=== PATIENT | female | born 1990 | race Caucasian/White ===

== ENCOUNTER 2019-03-15 14:23 | Emergency (ER) | payer OTHER ==
[~2019-03-15] VITALS: Ht 160 cm; Wt 64.4 kg
[2019-03-15 14:33] VITALS: BP 171/99
[2019-03-15] MEDS ORDERED: ACETAMINOPHEN EXTRA STRENGTH 500 MG TAB PO ONE ×2 (14:40→14:45)
--- NOTE | 2019-03-15 14:49 | NUR ---
29/F BIB FAMILY C/O FEVER,COUGH, SORE THROAT, BODY ACHE X 4 DAYS. TEMP 102.1 AT THIS TIME. MED HX: GALL BLADDER REMOVAL, APPENDECTOMY, HYPERTHYROID.PATIENT STATES PAIN OF 10/10 AT THIS TIME. PATIENT POSITIONED FOR COMFORT; HOB ELEVATED; BEDRAILS UP X1; BED DOWN. ER MD MADE AWARE OF PT STATUS.
[2019-03-15] MEDS ORDERED: ALBUTEROL SULFATE/IPRATROPIU 3 ML SOL IH ONE (14:55)
--- NOTE | 2019-03-15 15:01 | NUR ---
FLU SWAB SENT TO LAB
--- NOTE | 2019-03-15 15:03 | NUR ---
PT TAKEN TO X RAY.
--- NOTE | 2019-03-15 15:04 | NUR ---
RT AT BEDSIDE FOR BREATHING TREATMENT.
--- NOTE | 2019-03-15 15:18 | NUR ---
PT RECEIVED ON RA SATURATION 100 PERCENT. TX GIVEN. B/S WERE CLEAR THROUGHOUT. PT APPEARS IN PAIN. PT TOLERATED TX WELL. NO ADVERSE REACTION TO TX
[2019-03-15] MEDS ORDERED: LEVOFLOXACIN 750 MG TAB PO ONE (16:00)
[2019-03-15] MEDS ORDERED: KETOROLAC 30 MG/ML VIAL IM ONE (16:00)
[2019-03-15 16:30] VITALS: BP 140/96
--- NOTE | 2019-03-15 16:30 | NUR ---
Patient discharged with v/s stable. Written and verbal after care instructions given and explained. Patient alert, oriented and verbalized understanding of instructions. Ambulatory with steady gait. All questions addressed prior to discharge. ID band removed. Patient advised to follow up with PMD. Rx of LEVAQUIN, ALBUTEROL given. Patient educated on indication of medication including possible reaction and side effects. Opportunity to ask questions provided and answered.
== END 2019-03-15 16:29 | disposition home or self-care (01) ==
LOC: MED 14:23
DX: J18.9 Pneumonia, unspecified organism (principal); F17.210 Nicotine dependence, cigarettes, uncomplicated; E05.90 Thyrotoxicosis, unspecified without thyrotoxic crisis or storm; Z90.49 Acquired absence of other specified parts of digestive tract; Z71.6 Tobacco abuse counseling
CPT/HCPCS: 71046; 87804; 94640; 96372; 99284; J1885; J7620

== ENCOUNTER 2020-01-01 14:10 | Emergency (ER) | payer OTHER ==
[~2020-01-01] VITALS: Ht 160 cm; Wt 63.5 kg
[2020-01-01 14:15] VITALS: BP 152/104
--- NOTE | 2020-01-01 14:26 | NUR ---
29 yo female c/o burning stabbing pain to epigastric region x >1 wk---seen [facility] given zofran and pain med----ran out yesterday ---sudden onset today without having to eat----no appetite +nausea hx--denies rx---none
[2020-01-01] MEDS ORDERED: ALUMINUM HYD/MAG/SIMETHICONE 30 ML UDC PO ONE (14:35)
[2020-01-01] MEDS ORDERED: LIDOCAINE VISCOUS 2% 20 ML UDC PO ONE (14:35)
[2020-01-01] MEDS ORDERED: METOCLOPRAMIDE 10 MG TAB PO ONE (14:35)
[2020-01-01] MEDS ORDERED: DICYCLOMINE HCL LIQUID 10 MG/5 ML UDC PO ONE (14:50)
[2020-01-01] MEDS: SUCRALFATE 1 GM TAB PO SCH ×2 (14:51→16:07)
[2020-01-01] MEDS ORDERED: NACL 0.9% 1,000 ML IV ONE (14:55)
[2020-01-01] MEDS ORDERED: fentaNYL citrate 0.05 MG/ML VIAL IVP ONE (16:00)
[2020-01-01 16:38] LABS: ALBUMIN 4.6 g/dL (3.4-5.0); ANION GAP 16.6 (8-16); CARBON DIOXIDE 24.9 mmol/L (21-32); CREATININE 0.6 mg/dL (0.6-1.3); POTASSIUM 3.5 mmol/L (3.5-5.1); TOTAL BILIRUBIN 0.3 mg/dL (0.0-1.0)
[2020-01-01 17:04] VITALS: BP 147/78
--- NOTE | 2020-01-01 17:04 | NUR ---
Patient discharged with v/s stable. Written and verbal after care instructions given and explained. Patient alert, oriented and verbalized understanding of instructions. Ambulatory with steady gait. All questions addressed prior to discharge. ID band removed. Patient advised to follow up with PMD. Rx of CARAFATE, ZOFRAN, NORCO given. Patient educated on indication of medication including possible reaction and side effects. Opportunity to ask questions provided and answered.
== END 2020-01-01 17:04 | disposition home or self-care (01) ==
LOC: MED 14:10
DX: R10.13 Epigastric pain (principal); R11.10 Vomiting, unspecified; K21.9 Gastro-esophageal reflux disease without esophagitis; E07.9 Disorder of thyroid, unspecified
CPT/HCPCS: 36415; 80053; 81002; 81025; 83690; 96361; 96374; 99284; J3010; J7030; J8597

== ENCOUNTER 2020-02-11 20:44 | Emergency (ER) | payer OTHER ==
[~2020-02-11] VITALS: Ht 165.1 cm; Wt 71.2 kg
[2020-02-11 20:55] VITALS: BP 128/81
--- NOTE | 2020-02-11 20:59 | NUR ---
PT TAKEN TO BED 7
--- NOTE | 2020-02-11 21:03 | NUR ---
PT UP AND AMBULATED WITH HER DAUGHTER TO THE RESTROOM.
--- NOTE | 2020-02-11 21:17 | NUR ---
PT C/O OF CHEST PAIN TO MEDISTERNAL AREA, SHARP PAIN 9/10, ALSO HAVING SOB, THIS HAS BEEN GOING ON X 2 DAYS, SHE'S NOT SURE IF IT COULD BE ANXIETY. ALSO C/O R KNEE PAIN, STATES SHE HAS TORN LIGAMENTS IN HER KNEE, HAS BEEN HAVING 8/10 THROBBING PAIN X 1 WEEK UNABLE TO PUT PRESSURE ON KNEE, WAS SEEN AT URGENT CARE AND GIVEN NSAIDS, UNABLE TO TAKE THEM DUE TO BLEEDING STOMACH ULCERS. PT NOT SURE HOW SHE INJURED HER KNEE BELIEVES SHE STEPPED WRONG AND TWISTED HER KNEE. BED IN LOWEST POSITION AND SIDERAIL UP X 1. ALLERGIES - NSAIDS HX - BLEEDING ULCER (STOMACH)
--- NOTE | 2020-02-11 21:37 | NUR ---
X-Ray at bedside.
--- NOTE | 2020-02-11 21:55 | NUR ---
Dr. Inman examining patient.
[2020-02-11 22:18] VITALS: BP 127/86
--- NOTE | 2020-02-11 22:22 | NUR ---
PT PLACED IN RIGHT ORTHO KNEE IMOBILIZOR
== END 2020-02-11 22:27 | disposition home or self-care (01) ==
LOC: MED 20:44
DX: S83.8X1A Sprain of other specified parts of right knee, initial encounter (principal); F17.210 Nicotine dependence, cigarettes, uncomplicated; F41.9 Anxiety disorder, unspecified; R03.0 Elevated blood-pressure reading, without diagnosis of hypertension; E07.9 Disorder of thyroid, unspecified; Z88.6 Allergy status to analgesic agent; Z71.6 Tobacco abuse counseling; X58.XXXA Exposure to other specified factors, initial encounter; Y93.9 Activity, unspecified; Y92.89 Other specified places as the place of occurrence of the external cause; Y99.8 Other external cause status
CPT/HCPCS: 29505; 73562; 73630; 99284; Q0092

== ENCOUNTER 2020-05-04 19:34 | Emergency (ER) | payer OTHER ==
[~2020-05-04] VITALS: Ht 160 cm; Wt 72.6 kg
[2020-05-04 19:50] VITALS: BP 152/100
--- NOTE | 2020-05-04 19:53 | NUR ---
TO LOBBY A/W BED AMBULATORY
--- NOTE | 2020-05-04 19:55 | NUR ---
SEEN AND EXAMINED BY PA WITH ORDERS AND CARRIED OUT
[2020-05-04 20:36] LABS: BASOPHILS % (AUTO) 0.4 % (0.0-2.0); EOSINOPHILS # (AUTO) 0.1 K/uL (0-0.4); EOSINOPHILS % (AUTO) 0.6 % (0.0-4.0); HEMATOCRIT 40.2 % (36-48); HEMOGLOBIN 13.1 g/dL (12.0-16.0); LYMPHOCYTES # (AUTO) 3.4 K/uL (2.5-16.5); LYMPHOCYTES % (AUTO) 34.2 % (20.5-51.1); MEAN CORPUSCULAR HEMOGLOBIN 29 pg (27-31); MEAN CORPUSCULAR HGB CONC 33 g/dL (33-37); MEAN CORPUSCULAR VOLUME 87.9 fL (80-94); MONOCYTES # (AUTO) 0.6 K/uL (0.8-1.0); MONOCYTES % (AUTO) 6.4 % (1.7-9.3); NEUTROPHILS # (AUTO) 5.8 K/uL (1.8-7.7); NEUTROPHILS % (AUTO) 58.4 % (42.2-75.2); PLATELET COUNT (AUTO) 334 K/uL (140-450); RED BLOOD CELL COUNT(AUTO) 4.58 MIL/uL (4.20-5.40); RED CELL DISTRIBUTION WIDTH 17.4 % (11.6-13.7); WHITE BLOOD COUNT (AUTO) 9.9 K/uL (4.8-10.8)
[2020-05-04 21:02] LABS: ALBUMIN 4.5 g/dL (3.4-5.0); ANION GAP 16.2 (8-16); CARBON DIOXIDE 24.3 mmol/L (21-32); CREATININE 0.7 mg/dL (0.6-1.3); POTASSIUM 3.5 mmol/L (3.5-5.1); TOTAL BILIRUBIN 0.5 mg/dL (0.0-1.0)
[2020-05-04 22:13] LABS: APPEARANCE,URINE CLEAR (CLEAR); BILIRUBIN,URINE NEGATIVE (NEGATIVE); BLOOD, URINE NEGATIVE (NEGATIVE); COLOR,URINE YELLOW (YELLOW); LEUKOCYTE ESTERASE ,URINE NEGATIVE (NEGATIVE); NITRITE, URINE POSITIVE (NEGATIVE); UGLUCOSE NEGATIVE (NEGATIVE)
[2020-05-04 22:51] LABS: RBC,URINE 0-5 /HPF (0-5); WBC,URINE 0-5 /HPF (0-5)
--- NOTE | 2020-05-04 23:30 | NUR ---
SEE COMPLETE ASSESSMENT
[2020-05-04] MEDS ORDERED: KETOROLAC 30 MG/ML VIAL IM ONE (23:35)
[2020-05-04] MEDS ORDERED: HYDROcodone/APAP 5/325 MG 1 TAB TAB PO ONE (23:35)
--- NOTE | 2020-05-05 00:10 | NUR ---
Patient discharged with v/s stable. Written and verbal after care instructions given and explained. Patient alert, oriented and verbalized understanding of instructions. Ambulatory with steady gait. All questions addressed prior to discharge. ID band removed. Patient advised to follow up with PMD. Rx of NAPROSYN, NORCO, KELFEX given. Patient educated on indication of medication including possible reaction and side effects. Opportunity to ask questions provided and answered.
== END 2020-05-05 00:10 | disposition home or self-care (01) ==
LOC: MED 19:34
DX: N39.0 Urinary tract infection, site not specified (principal); N83.201 Unspecified ovarian cyst, right side; N83.202 Unspecified ovarian cyst, left side; E05.90 Thyrotoxicosis, unspecified without thyrotoxic crisis or storm
CPT/HCPCS: 36415; 76856; 80053; 81001; 81025; 83690; 85025; 93976; 96372; 99284; J1885

== ENCOUNTER 2020-05-21 09:39 | Emergency (ER) | payer OTHER ==
[~2020-05-21] VITALS: Ht 160 cm; Wt 68.5 kg
[2020-05-21 09:44] VITALS: BP 155/109
[2020-05-21] MEDS ORDERED: HYDROcodone/APAP 5/325 MG 1 TAB TAB PO ONE (10:10)
[2020-05-21 10:34] VITALS: BP 149/92
--- NOTE | 2020-05-21 10:35 | NUR ---
cleared for d/c by DR KING; d/c with prescription & instructions on Ovarian Cyst; pt fully understands all materials given re c/c; has no further questions; aox4; VSS; ambulatorywith steady gait; no signs of acute distress
== END 2020-05-21 10:35 | disposition home or self-care (01) ==
LOC: MED 09:39
DX: N83.202 Unspecified ovarian cyst, left side (principal); N83.201 Unspecified ovarian cyst, right side; I10 Essential (primary) hypertension; F17.200 Nicotine dependence, unspecified, uncomplicated; E05.90 Thyrotoxicosis, unspecified without thyrotoxic crisis or storm; Z90.49 Acquired absence of other specified parts of digestive tract; Z98.890 Other specified postprocedural states
CPT/HCPCS: 99283

== ENCOUNTER 2020-06-24 20:27 | Emergency (ER) | payer OTHER ==
[~2020-06-24] VITALS: Ht 160 cm; Wt 74.4 kg
[2020-06-24 21:17] VITALS: BP 171/110
--- NOTE | 2020-06-24 21:27 | NUR ---
Pt ambulated to ER bed 6 w/ steady gait.
--- NOTE | 2020-06-24 21:28 | NUR ---
PT CONNECTED TO THE DATA CONSULTANT
--- NOTE | 2020-06-24 21:50 | NUR ---
30 YR OLD FEMALE PRESENTED TO THE ER WITH CC OF LEFT KNEE PAIN. PT IS AOX4. PT STATES 8 NON-RADIATING DULL/PRESSURE LIKE PAIN THAT STARTED LAST TUE. PT STATES LAST FRI, LEFT KNEE FELT LIKE IT "POPPED OUT AND BACK IN". PT LEFT KNEE HAS SLIGHT SWELLING. PT DENIES OTHER MEDICAL COMPLAINTS. BED LOCKED IN LOWEST POSITION. HISTORY- GALLBLADDER AND APPENDIX REMOVED, 2 , BLOOD TRANSFUSION ALLERGIES- NONE BUT STATES CANT TAKE IBUPROFEN DUE TO BLEEDING ULCERS
[2020-06-24 23:20] VITALS: BP 171/111
--- NOTE | 2020-06-24 23:20 | NUR ---
Patient discharged with v/s stable. Written and verbal after care instructions given and explained. Patient alert, oriented and verbalized understanding of instructions. Ambulatory with steady gait. All questions addressed prior to discharge. ID band removed. Patient advised to follow up with PMD. Rx of TRAMADOL HYDROCHLORIDE given. Patient educated on indication of medication including possible reaction and side effects. Opportunity to ask questions provided and answered.
--- NOTE | 2020-06-24 23:24 | NUR ---
KNEE IMMOBILIZER PLACED ON PT L KNEE, SECURED TO LEG. +CSM
--- NOTE | 2020-06-24 23:25 | NUR ---
PT GIVEN INSTRUCTION ON PROPER USE OF CRUTCHES. CRUTCHES FITTED TO PT HEIGHT AND ARM LENGTH. PT DEMONSTRATED SAFE USE FOR APPROXIMATELY 20 FEET, PT STATED SHE FELT COMFORTABLE WITH USE.
== END 2020-06-24 23:20 | disposition home or self-care (01) ==
LOC: MED 20:27
DX: M25.562 Pain in left knee (principal); I10 Essential (primary) hypertension; F17.210 Nicotine dependence, cigarettes, uncomplicated; Z85.9 Personal history of malignant neoplasm, unspecified
CPT/HCPCS: 29505; 73562; 99283

== ENCOUNTER 2020-08-04 11:40 | Emergency (ER) | payer OTHER ==
[~2020-08-04] VITALS: Ht 160 cm; Wt 68.0 kg
[2020-08-04 11:45] VITALS: BP 147/103
--- NOTE | 2020-08-04 11:52 | NUR ---
Patient ambulated to bed 6. RN evaluating the patient at bedside.
--- NOTE | 2020-08-04 11:54 | NUR ---
Dr. Nuñez is evaluating the patient at bedside.
--- NOTE | 2020-08-04 12:03 | NUR ---
30 y/o F coming in from home c/o wound incision pain. Patient states she had surgery to remove her right ovary and right fallopian tube completed at [facility] on 07/16/20. Patient states she had louisa removed a week after without complications, however, she has been dealing with incision pain since the surgery. Patient states she last took prescribed Keller on Tuesday without relief. Pt describes pain as 7/10, sharp/constant, non-radiating to site. No drainage, bleeding or redness noted. Patient states yellow drainage, however, no drainage noted at this time. Denies fever, chills, chest pain, abdominal pain, body aches, headache, blurry vision. Pt placed onto monitoring and evaluation advisor, bed locked in lowest position, side rails x2. PMH: Bleeding ulcers Meds: omperazole Sx: appendectomy, cholecystectomy, C section x 2 NKA
[2020-08-04 12:27] VITALS: BP 147/103
--- NOTE | 2020-08-04 12:27 | NUR ---
Patient discharged with v/s stable. Written and verbal after care instructions given and explained. Patient verbalized understanding. Ambulatory with steady gait. All questions addressed prior to discharge. Advised to follow up with PMD.
== END 2020-08-04 12:27 | disposition home or self-care (01) ==
LOC: MED 11:40
DX: T88.9XXA Complication of surgical and medical care, unspecified, initial encounter (principal); R10.9 Unspecified abdominal pain; R03.0 Elevated blood-pressure reading, without diagnosis of hypertension; F17.210 Nicotine dependence, cigarettes, uncomplicated; Z71.6 Tobacco abuse counseling
CPT/HCPCS: 99281

== ENCOUNTER 2020-09-07 21:59 | Emergency (ER) | payer OTHER ==
[~2020-09-07] VITALS: Ht 160 cm; Wt 69.4 kg
[2020-09-07 22:04] VITALS: BP 148/98
--- NOTE | 2020-09-07 22:04 | NUR ---
TO BED AMBULATORY
--- NOTE | 2020-09-07 22:05 | NUR ---
30 Y/ FEMALE CAME TO TH ED C/O R LOWER QUADRANT PAIN. PT STATED THAT SHE HAD WENT TO URGENT CARE FEW DAYS AGO, AND URGENT CARE GAVE PAIN MEDICATIONS BUT SHE SAID THAT IT DOESNT WORK. 9/10 SHARP RIGHT LOWER QUADRANT PAIN THAT RADIATES TO THE BACK. PT IS A&OX4, GCS 15. PT DENIES N/V/D NKA SURGICAL HX: RT OVARIAN CYST REMOVAL, GALLBLADDER REMOVAL, APPENDICITIS REMOVAL, 2 C-SECTIONS, BLEEDING ULCERS
[2020-09-08] MEDS ORDERED: ACET-9525 PO (00:07)
[2020-09-08] MEDS ORDERED: ACET-8386 PO (00:26)
[2020-09-08] MEDS ORDERED: CEPH-588 PO (00:26)
[2020-09-08 01:02] VITALS: BP 148/98
[2020-09-08] MEDS: KETOROLAC 30 MG/ML VIAL IM ONE (01:02)
--- NOTE | 2020-09-08 01:02 | NUR ---
Patient discharged with v/s stable. Written and verbal after care instructions given and explained. Patient alert, oriented and verbalized understanding of instructions. Carried with steady gait. All questions addressed prior to discharge. ID band removed. Patient advised to follow up with PMD. Rx of HYDROCODONE AND CEPHALEXIN given. Patient educated on indication of medication including possible reaction and side effects. Opportunity to ask questions provided and answered.
== END 2020-09-08 01:02 | disposition home or self-care (01) ==
LOC: MED 21:59
DX: N39.0 Urinary tract infection, site not specified (principal); I10 Essential (primary) hypertension; Z85.9 Personal history of malignant neoplasm, unspecified
CPT/HCPCS: 81002; 96372; 99283; J1885

== ENCOUNTER 2020-09-28 14:45 | Emergency (ER) | payer OTHER ==
[~2020-09-28] VITALS: Ht 160 cm; Wt 71.2 kg
[~2020-09-28 14:45] MED LIST: ACET-8386 PO; CEPH-588 PO
[2020-09-28 14:53] VITALS: BP 157/94
--- NOTE | 2020-09-28 15:07 | NUR ---
PATIENT AMBULATED TO 06 WITH STEADY GAIT
[2020-09-28] MEDS ORDERED: HYDROcodone/APAP 7.5/325 MG 1 TAB PO ONE (15:40)
--- NOTE | 2020-09-28 15:55 | NUR ---
30 YEAR OLD FEMALE COMPLAINS OF LEFT LEG PAIN X YESTERDAY. PT STATES SHE FREQUENTLY HAS PAIN DUE TO HISTORY OF SCIATICA THAT RADIATES THROUGH WHOLE LEG. PT DENIES TRAUMA. PT AOX4, BREATHING EVEN AND UNLABORED, SKIN WARM AND DRY. BED IN LOWEST POSITION, LOCKED, BED RAIL UPX1. PMH - HTN, SCIATICA ALLERGIES - NKA
[2020-09-28] MEDS ORDERED: PRED20TA5 PO (16:27)
[2020-09-28] MEDS ORDERED: LID5T TP (16:27)
[2020-09-28] MEDS ORDERED: ACET-8386 PO (16:27)
[2020-09-28 16:43] VITALS: BP 157/94
--- NOTE | 2020-09-28 16:45 | NUR ---
Patient discharged with v/s stable. Written and verbal after care instructions about lumbar sprain given and explained. Patient alert, oriented and verbalized understanding of instructions. Ambulatory with steady gait. All questions addressed prior to discharge. ID band removed. Patient advised to follow up with PMD. Rx of hydrocodone, lidoderm, deltasone given. Patient educated on indication of medication including possible reaction and side effects. Opportunity to ask questions provided and answered.
[2020-09-29] MEDS ORDERED: ACET-9527 PO (12:11)
[2020-09-29] MEDS ORDERED: PRED20TA5 PO ×2 (12:11→13:54)
[2020-09-29] MEDS ORDERED: ACET-8386 PO (13:54)
== END 2020-09-28 16:45 | disposition home or self-care (01) ==
LOC: MED 14:45
DX: S39.012A Strain of muscle, fascia and tendon of lower back, initial encounter (principal); I10 Essential (primary) hypertension; Z79.899 Other long term (current) drug therapy; Z88.8 Allergy status to other drugs, medicaments and biological substances; Z85.9 Personal history of malignant neoplasm, unspecified; X58.XXXA Exposure to other specified factors, initial encounter; Y93.89 Activity, other specified; Y92.89 Other specified places as the place of occurrence of the external cause; Y99.8 Other external cause status
CPT/HCPCS: 81002; 81025; 99283

== ENCOUNTER 2020-09-29 10:59 | Emergency (ER) | payer OTHER ==
[~2020-09-29] VITALS: Ht 160 cm; Wt 71.2 kg
[~2020-09-29 10:59] MED LIST changes: +LID5T TP; +PRED20TA5 PO
[2020-09-29 11:09] VITALS: BP 152/108
--- NOTE | 2020-09-29 11:13 | NUR ---
Patient ambulated to bed 02 with steady/even gait.
--- NOTE | 2020-09-29 11:40 | NUR ---
30 y/o F coming in from home with c/c low back pain. patient states she was seen here yesterday and discharged home with a prescription; however, has not been able to fill the prescription at both [facility]. Patient states 8/10 pain to left lower back that she has a lidocaine patch on for pain management. Patient denies fever, chills, N/V/D, SOB, chest pain, dizziness. Patient is here to receive a new prescription note. No other medical complaints. Bed locked in lowest position, side rails x 1, call light in reach. PMH: Cancer, HTN Meds: notes Allergies: NSAIDs
--- NOTE | 2020-09-29 11:40 | NUR ---
Dr. Yen is evaluating patient at bedside.
[2020-09-29] MEDS ORDERED: KETOROLAC 60 MG/2 ML VIAL IM ONE (12:00)
[2020-09-29] MEDS ORDERED: ACET-9527 PO (12:11)
[2020-09-29] MEDS ORDERED: PRED20TA5 PO ×2 (12:11→13:54)
[2020-09-29 12:18] VITALS: BP 152/108
--- NOTE | 2020-09-29 12:18 | NUR ---
Patient discharged with v/s stable. Written and verbal after care instructions given and explained. Patient alert, oriented and verbalized understanding of instructions. Ambulatory with steady gait. All questions addressed prior to discharge. ID band removed. Patient advised to follow up with PMD. Rx of Hydrocodone/Acetaminophen, Prednisone given. Patient educated on indication of medication including possible reaction and side effects. Opportunity to ask questions provided and answered.
[2020-09-29] MEDS ORDERED: ACET-8386 PO (13:54)
== END 2020-09-29 12:18 | disposition home or self-care (01) ==
LOC: MED 10:59
DX: M54.40 Lumbago with sciatica, unspecified side (principal); I10 Essential (primary) hypertension; Z76.0 Encounter for issue of repeat prescription; Z85.9 Personal history of malignant neoplasm, unspecified; Z79.899 Other long term (current) drug therapy
CPT/HCPCS: 96372; 99283; J1885

== ENCOUNTER 2021-04-15 20:54 | Emergency (ER) | payer OTHER ==
[~2021-04-15] VITALS: Ht 160 cm; Wt 72.6 kg
[2021-04-15 21:05] VITALS: BP 155/101
--- NOTE | 2021-04-15 21:05 | NUR ---
to bed ambulatory
--- NOTE | 2021-04-15 21:28 | NUR ---
31 Y/O F BIB SELF FOR RLQ PAIN X1.5 WEEKS. PATIENT PRESENTS TO ED WITH PAIN RADIATING TO HER BACK AND DOWN TO HER VAGINA. PT STATES SHE HAS HAD RECENT SURGERY TO REMOVE HER OVARIAN CYST AND RIGHT TUBE; PAIN IS IN THE SAME AREA THE SURGERY; PAIN STARTED RIGHT BEFORE HER MENSES. DENIES N/V/D; SKIN IS PINK/WARM/DRY; AAOX4 WITH EVEN AND STEADY GAIT; LUNGS CLEAR BL; HR EVEN AND REGULAR; PT DENIES ANY FEVER, CP, SOB, OR COUGH AT THIS TIME; PATIENT STATES RADIATING, THROBBING PAIN OF 9/10 THAT COMES/GOES; VSS; PT STATES SHE HAS A OBGYN APPT ON 04/28/21. PATIENT POSITIONED FOR COMFORT; HOB ELEVATED; BEDRAILS UP X1; BED DOWN. ER MD MADE AWARE OF PT STATUS. HX: APPENDECTOMY, CHOLECYSTECTOMY, HTN, HPV NKDA MEDS: LOSARTAN, CARVEDILOL, BUSPIRONE, TRAMADOL, AND MUSCLE RELAXERS
[2021-04-15 22:01] LABS: APPEARANCE,URINE CLEAR (CLEAR); BILIRUBIN,URINE NEGATIVE (NEGATIVE); BLOOD, URINE TRACE-I (NEGATIVE); COLOR,URINE YELLOW (YELLOW); LEUKOCYTE ESTERASE ,URINE NEGATIVE (NEGATIVE); NITRITE, URINE NEGATIVE (NEGATIVE); UGLUCOSE NEGATIVE (NEGATIVE)
--- NOTE | 2021-04-15 22:21 | NUR ---
ER AT BEDSIDE
[2021-04-15] MEDS ORDERED: MORPHINE SULFATE 4 MG/ML SYR IVP ONE (22:25)
--- NOTE | 2021-04-15 22:36 | NUR ---
Ultrasound at bedside.
--- NOTE | 2021-04-15 22:38 | NUR ---
Reji melo in ED - 04/15/21 at 2239 by [email or web address] ULTRASOUND AT BEDSIDE
[2021-04-15 22:47] LABS: WBC,URINE 0-5 /HPF (0-5)
--- NOTE | 2021-04-15 22:56 | NUR ---
LABS AT BEDSIDE
[2021-04-15 23:04] LABS: BASOPHILS % (AUTO) 0.3 % (0.0-2.0); EOSINOPHILS % (AUTO) 0.5 % (0.0-4.0); HEMATOCRIT 36.2 % (36-48); HEMOGLOBIN 12.1 g/dL (12.0-16.0); LYMPHOCYTES # (AUTO) 2.6 K/uL (2.5-16.5); MEAN CORPUSCULAR HEMOGLOBIN 29 pg (27-31); MEAN CORPUSCULAR HGB CONC 34 g/dL (33-37); MEAN CORPUSCULAR VOLUME 85.3 fL (80-94); MONOCYTES # (AUTO) 0.4 K/uL (0.8-1.0); MONOCYTES % (AUTO) 4.6 % (1.7-9.3); NEUTROPHILS # (AUTO) 5.6 K/uL (1.8-7.7); NEUTROPHILS % (AUTO) 64.6 % (42.2-75.2); PLATELET COUNT (AUTO) 388 K/uL (140-450); RED BLOOD CELL COUNT(AUTO) 4.24 MIL/uL (4.20-5.40); WHITE BLOOD COUNT (AUTO) 8.6 K/uL (4.8-10.8)
--- NOTE | 2021-04-15 23:11 | NUR ---
CONTACTED LAB TO COMPLETE THE URINE PREG AND CULTURE
[2021-04-15 23:23] LABS: ALBUMIN 4.3 g/dL (3.4-5.0); ANION GAP 11.6 (8-16); CARBON DIOXIDE 27.8 mmol/L (21-32); CREATININE 0.7 mg/dL (0.6-1.3); POTASSIUM 3.4 mmol/L (3.5-5.1); TOTAL BILIRUBIN 0.2 mg/dL (0.0-1.0)
[2021-04-15] MEDS ORDERED: SODIUM PHOS / POTASSIUM PHOS 1 PKT PDR PO STA (23:47)
--- NOTE | 2021-04-16 00:56 | NUR ---
ER AT BEDSIDE
[2021-04-16] MEDS ORDERED: ACET-5629 PO (01:03)
--- NOTE | 2021-04-16 01:15 | NUR ---
Patient discharged with v/s stable. Written and verbal after care instructions given and explained. Patient alert, oriented and verbalized understanding of instructions. Ambulatory with steady gait. All questions addressed prior to discharge. ID band removed. Patient advised to follow up with PMD. Rx of OXYCODONE given. Patient educated on indication of medication including possible reaction and side effects. Opportunity to ask questions provided and answered. A/OX4, GCS:15, VSS, UNLABORED BREATHING, STEADY GAIT, AND CALM DEMEANOR.
== END 2021-04-16 01:15 | disposition home or self-care (01) ==
LOC: MED 20:54
DX: N83.202 Unspecified ovarian cyst, left side (principal); N83.201 Unspecified ovarian cyst, right side; E87.6 Hypokalemia; R82.81 Pyuria; I10 Essential (primary) hypertension; Z90.49 Acquired absence of other specified parts of digestive tract; Z98.890 Other specified postprocedural states; Z79.899 Other long term (current) drug therapy; Z79.891 Long term (current) use of opiate analgesic; Z79.2 Long term (current) use of antibiotics; Z88.6 Allergy status to analgesic agent
CPT/HCPCS: 36415; 76856; 80053; 81001; 81025; 83690; 85025; 87086; 93976; 96374; 99284; J2270; Q0092

== ENCOUNTER 2021-04-27 18:12 | Emergency (ER) | payer OTHER ==
[~2021-04-27] VITALS: Ht 160 cm; Wt 75.3 kg
[~2021-04-27 18:12] MED LIST changes: +ACET-5629 PO
[2021-04-27 18:18] VITALS: BP 168/103
[2021-04-27] MEDS ORDERED: MORPHINE SULFATE 4 MG/ML SYR IM ONE (18:50)
[2021-04-27] MEDS ORDERED: ACET-8386 PO (19:10)
[2021-04-27 19:47] VITALS: BP 168/103
== END 2021-04-27 19:48 | disposition home or self-care (01) ==
LOC: MED 18:12
DX: R10.2 Pelvic and perineal pain (principal); I10 Essential (primary) hypertension; Z79.899 Other long term (current) drug therapy; Z90.49 Acquired absence of other specified parts of digestive tract; Z98.890 Other specified postprocedural states; Z85.9 Personal history of malignant neoplasm, unspecified
CPT/HCPCS: 81002; 81025; 96372; 99283; J2270

== ENCOUNTER 2021-05-18 14:36 | Emergency (ER) | payer OTHER ==
[~2021-05-18] VITALS: Ht 160 cm; Wt 76.2 kg
[2021-05-18 15:43] VITALS: BP 148/99
[2021-05-18] MEDS ORDERED: KETOROLAC 30 MG/ML VIAL IM ONE (16:00)
--- NOTE | 2021-05-18 16:18 | NUR ---
31 y/o female, c/o left flank pain for 4 days. denies n/v/d. denies dysuria, hematuria, urinary retention or frequency. denies syncope, loc or head/neck injury. skin is pink/warm/dry. aa&ox4 with even and steady gait. lungs clear bl. hr even and regular, cap refill <3, no edema present at this time. pt denies any fever, cp, sob or cough at this time. patient states pain is 9/10 at this time. ermd made aware of pt status. pmh: hpv allergy: denies
--- NOTE | 2021-05-18 18:01 | NUR ---
pt called into triage for medication, no answer in lobby or outside at this time
[2021-05-18] MEDS ORDERED: SULF-59 PO (18:41)
--- NOTE | 2021-05-18 18:49 | NUR ---
Reji melo in ED - 05/18/21 at 1850 by [email or web address] pt lwbs at this time, no answer in lobby or outside.
--- NOTE | 2021-05-18 18:50 | NUR ---
pt left er department at this time, no answer in lobby or outside.
--- NOTE | 2021-05-18 18:51 | NUR ---
PATIENT ELOPED FROM FACILITY. DISCHARGE INSTRUCTIONS NOT GIVEN TO PATIENT. DR. RAVI NOTIFIED.
[2021-05-18 18:58] LABS: APPEARANCE,URINE SL CLOUDY (CLEAR); BILIRUBIN,URINE NEGATIVE (NEGATIVE); BLOOD, URINE NEGATIVE (NEGATIVE); COLOR,URINE YELLOW (YELLOW); LEUKOCYTE ESTERASE ,URINE NEGATIVE (NEGATIVE); NITRITE, URINE POSITIVE (NEGATIVE); PH,URINE 6.5 (5.0-9.0); UGLUCOSE NEGATIVE (NEGATIVE)
== END 2021-05-18 18:51 | disposition home or self-care (01) ==
LOC: MED 14:36
DX: N83.201 Unspecified ovarian cyst, right side (principal); I10 Essential (primary) hypertension; Z98.890 Other specified postprocedural states; Z79.899 Other long term (current) drug therapy
CPT/HCPCS: 76856; 81003; 81025; 99284

== ENCOUNTER 2021-06-08 19:00 | Emergency (ER) | payer OTHER ==
[~2021-06-08] VITALS: Ht 160 cm; Wt 72.6 kg
[~2021-06-08 19:00] MED LIST changes: +SULF-59 PO
[2021-06-08 19:30] VITALS: BP 126/87
--- NOTE | 2021-06-08 19:33 | NUR ---
TO LOBBY A/W BED AMBULATORY
[2021-06-08 20:02] LABS: HEMOGLOBIN 12.7 g/dL (12.0-16.0); MEAN CORPUSCULAR HGB CONC 34 g/dL (33-37); RED CELL DISTRIBUTION WIDTH 17.8 % (11.6-13.7)
[2021-06-08 20:05] LABS: BASOPHILS % (AUTO) 0.3 % (0.0-2.0); EOSINOPHILS # (AUTO) 0.1 K/uL (0-0.4); EOSINOPHILS % (AUTO) 0.6 % (0.0-4.0); HEMATOCRIT 37.7 % (36-48); LYMPHOCYTES # (AUTO) 3.4 K/uL (2.5-16.5); LYMPHOCYTES % (AUTO) 34.6 % (20.5-51.1); MEAN CORPUSCULAR HEMOGLOBIN 28 pg (27-31); MEAN CORPUSCULAR VOLUME 83.8 fL (80-94); MONOCYTES # (AUTO) 0.7 K/uL (0.8-1.0); MONOCYTES % (AUTO) 7.5 % (1.7-9.3); NEUTROPHILS # (AUTO) 5.6 K/uL (1.8-7.7); PLATELET COUNT (AUTO) 361 K/uL (140-450); WHITE BLOOD COUNT (AUTO) 9.8 K/uL (4.8-10.8)
[2021-06-08 20:19] LABS: ANION GAP 14.7 (8-16); CARBON DIOXIDE 24.6 mmol/L (21-32); CREATININE 0.6 mg/dL (0.6-1.3); POTASSIUM 3.3 mmol/L (3.5-5.1); TOTAL BILIRUBIN 0.2 mg/dL (0.0-1.0)
[2021-06-08] MEDS ORDERED: KETOROLAC 30 MG/ML VIAL IM ONE (21:10)
[2021-06-08 21:56] LABS: BILIRUBIN,URINE NEGATIVE (NEGATIVE); BLOOD, URINE NEGATIVE (NEGATIVE); LEUKOCYTE ESTERASE ,URINE NEGATIVE (NEGATIVE); NITRITE, URINE POSITIVE (NEGATIVE); UGLUCOSE NEGATIVE (NEGATIVE)
[2021-06-08 22:04] LABS: APPEARANCE,URINE CLOUDY (CLEAR); COLOR,URINE AMBER (YELLOW)
[2021-06-08] MEDS ORDERED: CEPH-588 PO (23:11)
--- NOTE | 2021-06-08 23:57 | NUR ---
PATIENT REFUSES CT, ERMD NOTED
[2021-06-09] VITALS: BP 119/81
== END 2021-06-09 | disposition home or self-care (01) ==
LOC: MED 19:00
DX: N39.0 Urinary tract infection, site not specified (principal); Z90.49 Acquired absence of other specified parts of digestive tract; Z98.890 Other specified postprocedural states
CPT/HCPCS: 36415; 76830; 80053; 81003; 81025; 83690; 85025; 87086; 96372; 99284; J1885; Q0092

== ENCOUNTER 2021-06-24 21:48 | Emergency (ER) | payer OTHER ==
--- NOTE | 2021-06-24 22:15 | NUR ---
CALLED TO TRIAGE; NO ANSWER
== END 2021-06-24 23:32 | disposition left against medical advice (07) ==
LOC: MED 21:48
DX: Z48.01 Encounter for change or removal of surgical wound dressing (principal); Z53.21 Procedure and treatment not carried out due to patient leaving prior to being seen by health care provider

== ENCOUNTER 2021-06-27 03:59 | Emergency (ER) | payer OTHER ==
[~2021-06-27] VITALS: Ht 160 cm; Wt 76.7 kg
[2021-06-27 04:04] VITALS: BP 150/93
[2021-06-27] MEDS ORDERED: KETOROLAC 30 MG/ML VIAL IVP ONE (04:15)
[2021-06-27] MEDS ORDERED: NACL 0.9% 1,000 ML IV ONE (04:15)
[2021-06-27 04:41] LABS: BASOPHILS # (AUTO) 0.1 K/uL (0.00-0.22); BASOPHILS % (AUTO) 0.4 % (0.0-2.0); EOSINOPHILS # (AUTO) 0.4 K/uL (0-0.4); EOSINOPHILS % (AUTO) 2.4 % (0.0-4.0); HEMOGLOBIN 9.2 g/dL (12.0-16.0); LYMPHOCYTES # (AUTO) 2.8 K/uL (2.5-16.5); LYMPHOCYTES % (AUTO) 15.6 % (20.5-51.1); MEAN CORPUSCULAR HEMOGLOBIN 28 pg (27-31); MEAN CORPUSCULAR HGB CONC 33 g/dL (33-37); MEAN CORPUSCULAR VOLUME 84.4 fL (80-94); MONOCYTES % (AUTO) 5.9 % (1.7-9.3); NEUTROPHILS # (AUTO) 13.4 K/uL (1.8-7.7); NEUTROPHILS % (AUTO) 75.7 % (42.2-75.2); PLATELET COUNT (AUTO) 599 K/uL (140-450); RED BLOOD CELL COUNT(AUTO) 3.31 MIL/uL (4.20-5.40); WHITE BLOOD COUNT (AUTO) 17.7 K/uL (4.8-10.8)
[2021-06-27 04:53] LABS: ALBUMIN 3.5 g/dL (3.4-5.0); CARBON DIOXIDE 29.5 mmol/L (21-32); CREATININE 0.6 mg/dL (0.6-1.3); POTASSIUM 3.5 mmol/L (3.5-5.1); TOTAL BILIRUBIN 0.4 mg/dL (0.0-1.0)
[2021-06-27] MEDS ORDERED: MORPHINE SULFATE 4 MG/ML SYR IVP ONE (05:35)
[2021-06-27 05:57] LABS: APPEARANCE,URINE SLIGHTLY HAZY (CLEAR); BILIRUBIN,URINE NEGATIVE (NEGATIVE); BLOOD, URINE NEGATIVE (NEGATIVE); COLOR,URINE YELLOW (YELLOW); LEUKOCYTE ESTERASE ,URINE NEGATIVE (NEGATIVE); NITRITE, URINE POSITIVE (NEGATIVE); UGLUCOSE NEGATIVE (NEGATIVE)
[2021-06-27 06:08] LABS: RBC,URINE 0-5 /HPF (0-5)
[2021-06-27] MEDS ORDERED: VANCOMYCIN 1,000 MG in DEXTROSE 5% 250 ML IV ONE (06:30)
[2021-06-27] MEDS ORDERED: cefTRIAXone 1,000 MG VIAL ONE (06:39)
[2021-06-27] MEDS ORDERED: VANCOMYCIN 1,000 MG VIAL ONE (07:31)
[2021-06-27] MEDS ORDERED: NAPR-54 PO (07:38)
[2021-06-27] MEDS ORDERED: ACET-5629 PO (07:38)
[2021-06-27] MEDS ORDERED: CEPH-588 PO (07:38)
[2021-06-27 07:47] VITALS: BP 112/68
== END 2021-06-27 07:47 | disposition home or self-care (01) ==
LOC: MED 03:59
DX: S30.1XXA Contusion of abdominal wall, initial encounter (principal); R10.2 Pelvic and perineal pain; I10 Essential (primary) hypertension; Z90.710 Acquired absence of both cervix and uterus; Z79.899 Other long term (current) drug therapy; Y83.8 Other surgical procedures as the cause of abnormal reaction of the patient, or of later complication, without mention of misadventure at the time of the procedure
CPT/HCPCS: 36415; 72193; 80053; 81001; 83605; 85025; 87040; 87086; 96365; 96375; 99285; J0696; J1885; J2270; J3370; J7030; Q9967

== ENCOUNTER 2021-07-01 10:19 | Emergency (ER) | payer OTHER ==
[~2021-07-01] VITALS: Ht 160 cm; Wt 72.6 kg
[~2021-07-01 10:19] MED LIST changes: +NAPR-54 PO
[2021-07-01 10:36] VITALS: BP 158/99
--- NOTE | 2021-07-01 10:47 | NUR ---
Patient ambulated to bed 1.
--- NOTE | 2021-07-01 10:50 | NUR ---
31 y/o Female BIB for c/o pain in her surgical site s/p hysterectomy. Pain is 10/10 sharp like and incision area is painfaul upon palpation. Periwound area is WNL. Drainage is serous and scant amount. Incision edges are well approximated without dehisence at this time. Steristrips noted for reinforcement. Pt is afebrile at this site. Pmhx: HTN, hysterrectomy, tachycardia Allergies: Denies Home meds: Losartan
[2021-07-01] MEDS: MORPHINE SULFATE 4 MG/ML SYR IM ONE (11:59)
--- NOTE | 2021-07-01 12:09 | NUR ---
PT'S WOUND RE-DRESSED WITH NON-ADERANT AND STERILE 4X4 GAUZE.
[2021-07-01 12:12] VITALS: BP 137/89
--- NOTE | 2021-07-01 12:12 | NUR ---
Patient discharged with v/s stable. Written and verbal after care instructions given and explained with teachback. Patient verbalized understanding. Ambulatory with steady gait. All questions addressed prior to discharge. Advised to follow up with PMD. Pt aware that she is not advised to drive herself home, in lobby to drive her home.
== END 2021-07-01 12:12 | disposition home or self-care (01) ==
LOC: MED 10:19
DX: L02.211 Cutaneous abscess of abdominal wall (principal); I10 Essential (primary) hypertension; F17.210 Nicotine dependence, cigarettes, uncomplicated; Z90.49 Acquired absence of other specified parts of digestive tract
CPT/HCPCS: 96372; 99283; J2270

== ENCOUNTER 2021-07-10 22:00 | Emergency (ER) | payer OTHER ==
[~2021-07-10] VITALS: Ht 160 cm; Wt 70.3 kg
[2021-07-10 22:30] VITALS: BP 139/74
--- NOTE | 2021-07-10 22:30 | NUR ---
TO BED AMBULATORY
[2021-07-10 23:14] VITALS: BP 139/74
--- NOTE | 2021-07-10 23:15 | NUR ---
PT SEEN BY PROVIDER. PT DECIDED TO [facility]OPE AND BE SEEN BY HER PROVIDER ON TUESDAY.
== END 2021-07-10 23:15 | disposition left against medical advice (07) ==
LOC: MED 22:00
DX: T81.9XXA Unspecified complication of procedure, initial encounter (principal); I10 Essential (primary) hypertension; Z48.00 Encounter for change or removal of nonsurgical wound dressing; Z90.49 Acquired absence of other specified parts of digestive tract; Z98.890 Other specified postprocedural states
CPT/HCPCS: 99284

== ENCOUNTER 2021-08-08 11:28 | Emergency (ER) | payer OTHER ==
[~2021-08-08] VITALS: Ht 160 cm; Wt 71.2 kg
[2021-08-08 11:37] VITALS: BP 146/83
[2021-08-08] MEDS ORDERED: IBUPROFEN 800 MG TAB PO ONE (12:20)
--- NOTE | 2021-08-08 12:55 | NUR ---
PT ABULATED TO ER BED 5
--- NOTE | 2021-08-08 13:00 | NUR ---
31 y/o F BIB self from home c/o low abdomen pain s/p hysterectomy surgery. Patient states surgery 06/17/21; and reports abscess formed in which she required additional surgery on 06/30/21. Patient states pain, sharp/intermittent, non-radiating pain to incision site. Patient denies fever, chills, n/v/d, dysuria, constipation, urinary symptoms. Pt denies medications prior to arrival. Abd non-tender. Bed locked in lowest position, side rails x 1. PMH: bleeding ulcers Meds: Denies Sx: hysterectomy (partial - ovaries in tact), appendectomy, cholecystectomy
[2021-08-08] MEDS ORDERED: ONDANSETRON 4 MG/2 ML VIAL IVP ONE (13:50)
[2021-08-08] MEDS ORDERED: MORPHINE SULFATE 4 MG/ML SYR IVP ONE (13:50)
[2021-08-08 14:29] LABS: HEMOGLOBIN 8.7 g/dL (12.0-16.0); MONOCYTES # (AUTO) 0.5 K/uL (0.8-1.0)
[2021-08-08 14:35] LABS: BASOPHILS % (AUTO) 0.3 % (0.0-2.0); EOSINOPHILS % (AUTO) 0.3 % (0.0-4.0); HEMATOCRIT 28.2 % (36-48); LYMPHOCYTES # (AUTO) 2.5 K/uL (2.5-16.5); LYMPHOCYTES % (AUTO) 28.6 % (20.5-51.1); MEAN CORPUSCULAR HEMOGLOBIN 25 pg (27-31); MEAN CORPUSCULAR HGB CONC 31 g/dL (33-37); MEAN CORPUSCULAR VOLUME 81.7 fL (80-94); MONOCYTES % (AUTO) 5.4 % (1.7-9.3); NEUTROPHILS # (AUTO) 5.8 K/uL (1.8-7.7); NEUTROPHILS % (AUTO) 65.4 % (42.2-75.2); PLATELET COUNT (AUTO) 615 K/uL (140-450); RED BLOOD CELL COUNT(AUTO) 3.45 MIL/uL (4.20-5.40); RED CELL DISTRIBUTION WIDTH 18.8 % (11.6-13.7); WHITE BLOOD COUNT (AUTO) 8.8 K/uL (4.8-10.8)
[2021-08-08 15:14] LABS: ALBUMIN 3.8 g/dL (3.4-5.0); ANION GAP 12.9 (8-16); CARBON DIOXIDE 25.1 mmol/L (21-32); CREATININE 0.6 mg/dL (0.6-1.3); TOTAL BILIRUBIN 0.2 mg/dL (0.0-1.0)
--- NOTE | 2021-08-08 15:25 | NUR ---
[facility]
[2021-08-08] MEDS ORDERED: CEPH-588 PO (16:37)
[2021-08-08] MEDS ORDERED: FERR325E14 PO (16:37)
[2021-08-08] MEDS ORDERED: ACET-8386 PO (16:37)
[2021-08-08 16:41] VITALS: BP 139/83
--- NOTE | 2021-08-08 17:20 | NUR ---
Patient discharged with v/s stable. Written and verbal after care instructions given and explained for Wound Dehiscence. Patient alert, oriented and verbalized understanding of instructions. Ambulatory with steady gait. All questions addressed prior to discharge. ID band removed. Patient advised to follow up with PMD. Rx of Keflex, [place] 5-325, Ferrous Sulfate given. Patient educated on indication of medication including possible reaction and side effects. Opportunity to ask questions provided and answered.
== END 2021-08-08 17:20 | disposition home or self-care (01) ==
LOC: MED 11:28
DX: T81.31XA Disruption of external operation (surgical) wound, not elsewhere classified, initial encounter (principal); D64.9 Anemia, unspecified; I10 Essential (primary) hypertension; Z79.899 Other long term (current) drug therapy; Z90.710 Acquired absence of both cervix and uterus; Y83.8 Other surgical procedures as the cause of abnormal reaction of the patient, or of later complication, without mention of misadventure at the time of the procedure; Y92.89 Other specified places as the place of occurrence of the external cause
CPT/HCPCS: 36415; 74177; 80053; 81025; 85025; 96374; 96375; 99285; J2270; J2405; Q9967

== ENCOUNTER 2021-09-25 21:56 | Emergency (ER) | payer OTHER ==
[~2021-09-25 21:56] MED LIST changes: +FERR325E14 PO
--- NOTE | 2021-09-25 22:05 | NUR ---
CALLED TO TRIAGE, NO ANSWER. PER REGISTRATION, PT CAME TO WINDOW AND SAID SHE WAS LEAVING
== END 2021-09-25 22:05 | disposition left against medical advice (07) ==
LOC: MED 21:56
DX: R52 Pain, unspecified (principal); Z53.21 Procedure and treatment not carried out due to patient leaving prior to being seen by health care provider

== ENCOUNTER 2021-09-29 11:10 | Emergency (ER) | payer OTHER ==
[~2021-09-29] VITALS: Ht 160 cm; Wt 72.6 kg
[2021-09-29 11:19] VITALS: BP 145/97
--- NOTE | 2021-09-29 11:30 | NUR ---
31Y FEMALE BIB SELF DUE TO R SIDED PELVIC PAIN THAT RADIATES TO HER R BACK. PT DENIES AN N/V. PT STATED PAIN IS 8/10 AND ACHE LIKE. PT A&OX4, AND AMBULATORY PMH: OVARIAN CYST NKA
--- NOTE | 2021-09-29 12:36 | NUR ---
URINE WALKED OVER TO LAB BY CHOCO
[2021-09-29 12:40] LABS: APPEARANCE,URINE CLOUDY (CLEAR); BILIRUBIN,URINE NEGATIVE (NEGATIVE); BLOOD, URINE NEGATIVE (NEGATIVE); COLOR,URINE AMBER (YELLOW); LEUKOCYTE ESTERASE ,URINE NEGATIVE (NEGATIVE); NITRITE, URINE NEGATIVE (NEGATIVE); PH,URINE 6.5 (5.0-9.0); UGLUCOSE NEGATIVE (NEGATIVE)
[2021-09-29] MEDS ORDERED: MORPHINE SULFATE 4 MG/ML SYR IM ONE (12:40)
[2021-09-29] MEDS ORDERED: ACET-5629 PO (12:45)
[2021-09-29 12:59] VITALS: BP 145/97
--- NOTE | 2021-09-29 13:00 | NUR ---
Patient discharged with v/s stable. Written and verbal after care instructions given and explained. Patient alert, oriented and verbalized understanding of instructions. Ambulatory with steady gait. All questions addressed prior to discharge. ID band removed. Patient advised to follow up with PMD. Rx of PERCOCET given. Patient educated on indication of medication including possible reaction and side effects. Opportunity to ask questions provided and answered.
== END 2021-09-29 13:00 | disposition home or self-care (01) ==
LOC: MED 11:10
DX: G89.29 Other chronic pain (principal); R10.2 Pelvic and perineal pain; F17.210 Nicotine dependence, cigarettes, uncomplicated; Z79.899 Other long term (current) drug therapy; Z90.710 Acquired absence of both cervix and uterus
CPT/HCPCS: 81003; 81025; 96372; 99283; J2270

== ENCOUNTER 2021-11-20 16:31 | Emergency (ER) | payer OTHER ==
[~2021-11-20] VITALS: Ht 160 cm; Wt 70.8 kg
[2021-11-20 17:06] VITALS: BP 169/106
--- NOTE | 2021-11-20 17:37 | NUR ---
Reji mleo in [facility] - 11/20/21 at 1737 by MOHINDER PATIENT LEFT WITHOUT BEING SEEN BY DR. RAVI. NO FURTHER CARE PROVIDED FOR PATIENT.
[2021-11-20 17:59] LABS: APPEARANCE,URINE CLEAR (CLEAR); BILIRUBIN,URINE NEGATIVE (NEGATIVE); BLOOD, URINE NEGATIVE (NEGATIVE); LEUKOCYTE ESTERASE ,URINE NEGATIVE (NEGATIVE); NITRITE, URINE NEGATIVE (NEGATIVE); PH,URINE 6.5 (5.0-9.0); UGLUCOSE NEGATIVE (NEGATIVE)
[2021-11-20 18:05] LABS: COLOR,URINE YELLOW (YELLOW)
[2021-11-20] MEDS ORDERED: MORPHINE SULFATE 4 MG/ML SYR IM ONE (18:45)
[2021-11-20] MEDS ORDERED: ACET-8386 PO (19:05)
[2021-11-20 19:27] VITALS: BP 147/99
== END 2021-11-20 19:27 | disposition home or self-care (01) ==
LOC: MED 16:31
DX: R10.31 Right lower quadrant pain (principal); I10 Essential (primary) hypertension; R00.0 Tachycardia, unspecified; F17.200 Nicotine dependence, unspecified, uncomplicated; Z90.49 Acquired absence of other specified parts of digestive tract; Z98.890 Other specified postprocedural states; Z90.710 Acquired absence of both cervix and uterus
CPT/HCPCS: 81003; 96372; 99283; J2270

== ENCOUNTER 2021-12-08 15:07 | Emergency (ER) | payer OTHER ==
[~2021-12-08] VITALS: Ht 160 cm; Wt 71.3 kg
[2021-12-08 15:08] VITALS: BP 139/96
--- NOTE | 2021-12-08 15:22 | NUR ---
WALKED IN C/O TOOTHACHE TO THE FRONT TOOTH AFTER A FALL 3 WKS AGO. PT WAS SEEN BY A SPECIALIST FOR REPAIR BUT NEEDED CARDIAC CLEARANCE D/T ELEVATED BP. PT ALSO HAD A WITNESSED SZ AT THE DAY OF THE FALL 3 WKS AGO. PT DENIES ANY HX SZ BUT WAS SEEN AT [facility] THAT SAME DAY. PT HAS AN APPOINTMENT WITH NEUROLOGIST AND [facility] INSTRUMENT REPAIRER BUT VISITED ED THE PAIN GOT UNBEARABLE. DENIES ANY SZ ACTIVITY SINCE 3 WKS AGO. STATES 10/10 PAIN AND SWELLING TO FACE.
[2021-12-08 15:24] VITALS: BP 137/86
[2021-12-08] MEDS ORDERED: CLIN300C2 PO (15:42)
[2021-12-08] MEDS ORDERED: CHLO473S62 PO (15:42)
[2021-12-08] MEDS ORDERED: KETOROLAC 30 MG/ML VIAL IM ONE (15:45)
[2021-12-08] MEDS ORDERED: LIDOCAINE MPF 1% 10 MG/ML VIAL INJ ONE (15:45)
--- NOTE | 2021-12-08 16:10 | NUR ---
MARTINEZ AT BEDSIDE FOR LIDO INJ
--- NOTE | 2021-12-08 16:17 | NUR ---
Patient discharged with v/s stable. Written and verbal after care instructions given and explained. Patient alert, oriented and verbalized understanding of instructions. Ambulatory with steady gait. All questions addressed prior to discharge. ID band removed. Patient advised to follow up with PMD. Rx of ATBX given. Patient educated on indication of medication including possible reaction and side effects. Opportunity to ask questions provided and answered.
== END 2021-12-08 16:17 | disposition home or self-care (01) ==
LOC: MED 15:07
DX: K02.9 Dental caries, unspecified (principal); I10 Essential (primary) hypertension; R00.0 Tachycardia, unspecified; K29.70 Gastritis, unspecified, without bleeding
CPT/HCPCS: 96372; 99283; J1885; J2001

== ENCOUNTER 2022-09-02 09:58 | Emergency (ER) | payer OTHER ==
[~2022-09-02] VITALS: Ht 165.1 cm; Wt 68.0 kg
[~2022-09-02 09:58] MED LIST changes: -ACET-8386 PO; +ACET-8905 PO; +CHLO473S62 PO; +CLIN300C2 PO
--- NOTE | 2022-09-02 09:58 | NUR ---
[id number] -- IVAN ALS TO ER BED 4
--- NOTE | 2022-09-02 09:59 | NUR ---
Patient being evaluated by physician at bedside.
[2022-09-02 10:00] VITALS: BP 198/120
[2022-09-02] MEDS ORDERED: NACL 0.9% 1,000 ML IV ONE (10:05)
[2022-09-02] MEDS ORDERED: LORazepam 2 MG/ML VIAL IVP ONE (10:05)
[2022-09-02] MEDS ORDERED: levETIRAcetam 1,000 MG in NACL 0.9% 100 ML IV ONE (10:05)
--- NOTE | 2022-09-02 10:12 | NUR ---
32 years old female biba s/p seizure, on arrival alert, able to follow simple commands, safety precautions initiated with siderails padded.
--- NOTE | 2022-09-02 10:25 | NUR ---
DMV RE-EXAMINATION FORM DROPPED OFF IN TAX SENIOR ASSOCIATE
[2022-09-02 10:49] LABS: BASOPHILS % (AUTO) 0.4 % (0.0-2.0); EOSINOPHILS # (AUTO) 0.1 K/uL (0-0.4); EOSINOPHILS % (AUTO) 1.8 % (0.0-4.0); HEMATOCRIT 41.5 % (36-48); HEMOGLOBIN 13.8 g/dL (12.0-16.0); LYMPHOCYTES # (AUTO) 2.7 K/uL (2.5-16.5); LYMPHOCYTES % (AUTO) 37.1 % (20.5-51.1); MEAN CORPUSCULAR HEMOGLOBIN 31 pg (27-31); MEAN CORPUSCULAR HGB CONC 33 g/dL (33-37); MEAN CORPUSCULAR VOLUME 91.9 fL (80-94); MONOCYTES # (AUTO) 0.6 K/uL (0.8-1.0); MONOCYTES % (AUTO) 8.2 % (1.7-9.3); NEUTROPHILS # (AUTO) 3.8 K/uL (1.8-7.7); NEUTROPHILS % (AUTO) 52.5 % (42.2-75.2); PLATELET COUNT (AUTO) 280 K/uL (140-450); RED BLOOD CELL COUNT(AUTO) 4.51 MIL/uL (4.20-5.40); RED CELL DISTRIBUTION WIDTH 14.7 % (11.6-13.7); WHITE BLOOD COUNT (AUTO) 7.2 K/uL (4.8-10.8)
[2022-09-02 11:11] LABS: ANION GAP 12.8 (8-16); CARBON DIOXIDE 27.8 mmol/L (21-32); CREATININE 0.7 mg/dL (0.6-1.3); POTASSIUM 3.6 mmol/L (3.5-5.1)
--- NOTE | 2022-09-02 11:59 | NUR ---
patient reassess no seizure activity, vss, denies pain.
[2022-09-02 12:02] LABS: APPEARANCE,URINE CLEAR (CLEAR); BILIRUBIN,URINE NEGATIVE (NEGATIVE); BLOOD, URINE NEGATIVE (NEGATIVE); COLOR,URINE YELLOW (YELLOW); LEUKOCYTE ESTERASE ,URINE NEGATIVE (NEGATIVE); NITRITE, URINE NEGATIVE (NEGATIVE); UGLUCOSE NEGATIVE (NEGATIVE)
[2022-09-02] MEDS ORDERED: CARV3.12 PO (12:37)
[2022-09-02] MEDS ORDERED: KEP500 PO (12:37)
[2022-09-02 12:45] VITALS: BP 120/75
--- NOTE | 2022-09-02 12:48 | NUR ---
patient condition stable no seizure d/c home with instructions bernard rodrigues reviewed understood left er with ambulatory with steady gait.
== END 2022-09-02 12:45 | disposition home or self-care (01) ==
LOC: MED 09:58
DX: R56.9 Unspecified convulsions (principal); I10 Essential (primary) hypertension; R00.0 Tachycardia, unspecified; F17.210 Nicotine dependence, cigarettes, uncomplicated; Z90.49 Acquired absence of other specified parts of digestive tract; Z90.710 Acquired absence of both cervix and uterus; Z98.890 Other specified postprocedural states; Z79.899 Other long term (current) drug therapy; Z79.1 Long term (current) use of non-steroidal anti-inflammatories (NSAID); Z79.2 Long term (current) use of antibiotics
CPT/HCPCS: 36415; 71045; 80048; 81003; 81025; 85025; 93005; 96361; 96374; 96375; 99285; J1953; J2060; J7030; Q0092

== ENCOUNTER 2023-01-17 23:41 | Emergency (ER) | payer SELFPAY ==
[~2023-01-17] VITALS: Ht 160 cm; Wt 68.0 kg
[~2023-01-17 23:41] MED LIST changes: +CARV3.12 PO; +KEP500 PO
[2023-01-17 23:48] VITALS: BP 143/93; PULSE 148; RESP 14; TEMP 98.2; O2SAT 96
[2023-01-18] MEDS ORDERED: LORazepam 2 MG/ML VIAL IVP ONE (00:55)
[2023-01-18] MEDS ORDERED: levETIRAcetam 1,000 MG in NACL 0.9% 100 ML IV ONE (00:55)
[2023-01-18] MEDS ORDERED: NACL 0.9% 1,000 ML IV ONE (00:55)
[2023-01-18] MEDS ORDERED: levETIRAcetam 100 MG/ML VIAL IV ONE (01:09)
[2023-01-18 01:24] LABS: ANION GAP 11.3 (8-16); CALCIUM 8.6 mg/dL (8.5-10.1); CARBON DIOXIDE 26.2 mmol/L (21-32); CREATININE 0.6 mg/dL (0.6-1.3); POTASSIUM 3.5 mmol/L (3.5-5.1)
[2023-01-18] MEDS ORDERED: KEP500 PO (02:48)
[2023-01-18 03:36] LABS: APPEARANCE,URINE CLEAR (CLEAR); BILIRUBIN,URINE NEGATIVE (NEGATIVE); BLOOD, URINE 3+ (NEGATIVE); COLOR,URINE YELLOW (YELLOW); LEUKOCYTE ESTERASE ,URINE NEGATIVE (NEGATIVE); NITRITE, URINE POSITIVE (NEGATIVE); PROTEIN,URINE NEGATIVE (NEGATIVE); UGLUCOSE NEGATIVE (NEGATIVE); UROBILINOGEN,URINE 0.2 EU/dL (0.2 - 1)
[2023-01-18 03:37] VITALS: BP 143/93; PULSE 93; RESP 14; TEMP 98.2; O2SAT 94
[2023-01-18 03:48] LABS: AMPHETAMINE, URINE NEGATIVE ng/ml (NEG <=1000); BARBITURATE, URINE NEGATIVE ng/ml (NEG <=200); BENZODIAZEPINE, URINE POSITIVE ng/mL (NEG <=200); CANNABINOID, URINE NEGATIVE ng/mL (NEG <=50); COCAINE, URINE NEGATIVE ng/mL (NEG <=300); OPIATE, URINE NEGATIVE ng/mL (NEG <=2000); PHENCYCLIDINE SCREEN,URINE POSITIVE ng/mL (NEG <=25)
[2023-01-18 03:51] LABS: BACTERIA,URINE 10-30 (MOD) /HPF (None Seen); MUCUS,URINE 1+ /LPF (None Seen); RBC,URINE TOO NUMEROUS TO COUN /HPF (0-5); SQUAMOUS EPITHELIAL CELL,UR 0-3 (FEW) /LPF (0-3 (FEW)); WBC,URINE 0-5 /HPF (0-5)
== END 2023-01-18 03:37 | disposition home or self-care (01) ==
LOC: MED 23:41
DX: G40.909 Epilepsy, unspecified, not intractable, without status epilepticus (principal); I10 Essential (primary) hypertension; R00.0 Tachycardia, unspecified; Z91.148 Patient's other noncompliance with medication regimen for other reason; Z90.49 Acquired absence of other specified parts of digestive tract; Z79.899 Other long term (current) drug therapy; Z90.710 Acquired absence of both cervix and uterus
CPT/HCPCS: 36415; 80048; 80305; 81001; 81025; 87086; 96365; 96375; 99284; J1953; J2060; J7030

== ENCOUNTER 2023-01-24 07:51 | Emergency (ER) | payer SELFPAY ==
[~2023-01-24] VITALS: Ht 167.6 cm; Wt 59.0 kg
[2023-01-24 08:07] VITALS: BP 126/94; PULSE 102; RESP 22; TEMP 97.6; O2SAT 98
[2023-01-24] MEDS ORDERED: NACL 0.9% 1,000 ML IV ONE (08:30)
[2023-01-24] MEDS ORDERED: MORPHINE SULFATE 4 MG/ML SYR IVP ONE (08:30)
[2023-01-24] MEDS ORDERED: ONDANSETRON 4 MG/2 ML VIAL IVP ONE (08:30)
[2023-01-24 08:34] LABS: BILIRUBIN,URINE NEGATIVE (NEGATIVE); BLOOD, URINE 2+ (NEGATIVE); COLOR,URINE YELLOW (YELLOW); LEUKOCYTE ESTERASE ,URINE NEGATIVE (NEGATIVE); NITRITE, URINE NEGATIVE (NEGATIVE); PROTEIN,URINE TRACE (NEGATIVE); UGLUCOSE NEGATIVE (NEGATIVE); UROBILINOGEN,URINE 0.2 EU/dL (0.2 - 1)
[2023-01-24 08:36] LABS: APPEARANCE,URINE SLIGHTLY HAZY (CLEAR)
[2023-01-24 09:01] LABS: BACTERIA,URINE OCCASSIONAL /HPF (None Seen); RBC,URINE 50-80 /HPF (0-5); SQUAMOUS EPITHELIAL CELL,UR 0-3 (FEW) /LPF (0-3 (FEW)); WBC,URINE 0-5 /HPF (0-5)
[2023-01-24] MEDS ORDERED: KETOROLAC 30 MG/ML VIAL IVP ONE (10:15)
[2023-01-24] MEDS ORDERED: METOCLOPRAMIDE 10 MG/2 ML INJ VIAL IVP ONE (10:15)
[2023-01-24 10:21] VITALS: O2SAT 98
[2023-01-24 10:23] LABS: BASOPHILS % (AUTO) 0.1 % (0.0-2.0); EOSINOPHILS % (AUTO) 0.2 % (0.0-4.0); HEMATOCRIT 44.5 % (36-48); LYMPHOCYTES # (AUTO) 1.6 K/uL (2.5-16.5); LYMPHOCYTES % (AUTO) 11.1 % (20.5-51.1); MEAN CORPUSCULAR HEMOGLOBIN 32 pg (27-31); MEAN CORPUSCULAR HGB CONC 34 g/dL (33-37); MEAN CORPUSCULAR VOLUME 94.3 fL (80-94); MONOCYTES # (AUTO) 0.7 K/uL (0.8-1.0); MONOCYTES % (AUTO) 4.6 % (1.7-9.3); NEUTROPHILS # (AUTO) 12.4 K/uL (1.8-7.7); PLATELET COUNT (AUTO) 343 K/uL (140-450); RED BLOOD CELL COUNT(AUTO) 4.72 MIL/uL (4.20-5.40); RED CELL DISTRIBUTION WIDTH 13.2 % (11.6-13.7); WHITE BLOOD COUNT (AUTO) 14.7 K/uL (4.8-10.8)
[2023-01-24 10:38] LABS: ALBUMIN 4.8 g/dL (3.4-5.0); ANION GAP 15.2 (8-16); CALCIUM 10.1 mg/dL (8.5-10.1); CARBON DIOXIDE 25.9 mmol/L (21-32); CREATININE 0.8 mg/dL (0.6-1.3); POTASSIUM 3.1 mmol/L (3.5-5.1); TOTAL BILIRUBIN 0.3 mg/dL (0.0-1.0)
[2023-01-24] MEDS ORDERED: TAMS0.4C96 PO (11:08)
[2023-01-24] MEDS ORDERED: HYDR-5191 PO (11:08)
[2023-01-24] MEDS ORDERED: ONDA-188 SL (11:08)
[2023-01-24 11:33] VITALS: BP 121/76; PULSE 76; RESP 18; TEMP 98.5; O2SAT 99
== END 2023-01-24 11:33 | disposition home or self-care (01) ==
LOC: MED 07:51
DX: N20.0 Calculus of kidney (principal); I11.9 Hypertensive heart disease without heart failure; Z79.899 Other long term (current) drug therapy
CPT/HCPCS: 36415; 74176; 80053; 81001; 81025; 83605; 83690; 85025; 87040; 96361; 96374; 96375; 99285; J1885; J2270; J2405; J2765; J7030

== ENCOUNTER 2023-03-02 01:40 | Emergency (ER) | payer SELFPAY ==
[~2023-03-02] VITALS: Ht 165.1 cm; Wt 68.0 kg
[~2023-03-02 01:40] MED LIST changes: +HYDR-5191 PO; +ONDA-188 SL; +TAMS0.4C96 PO
[2023-03-02 01:55] VITALS: BP 141/80; PULSE 129; RESP 20; TEMP 97.4; O2SAT 99
[2023-03-02] MEDS ORDERED: levETIRAcetam 1,000 MG in NACL 0.9% 100 ML IV ONE (01:55)
[2023-03-02] MEDS ORDERED: levETIRAcetam 100 MG/ML VIAL IV ONE (02:02)
[2023-03-02] MEDS ORDERED: levETIRAcetam 500 MG TAB PO ONE (02:10)
[2023-03-02] MEDS ORDERED: KEP500 PO (02:14)
[2023-03-02 02:38] LABS: APPEARANCE,URINE CLEAR (CLEAR); BILIRUBIN,URINE NEGATIVE (NEGATIVE); BLOOD, URINE NEGATIVE (NEGATIVE); COLOR,URINE YELLOW (YELLOW); LEUKOCYTE ESTERASE ,URINE NEGATIVE (NEGATIVE); NITRITE, URINE NEGATIVE (NEGATIVE); PROTEIN,URINE TRACE (NEGATIVE); UGLUCOSE NEGATIVE (NEGATIVE); UROBILINOGEN,URINE 0.2 EU/dL (0.2 - 1)
[2023-03-02 03:02] LABS: AMPHETAMINE, URINE NEGATIVE ng/ml (NEG <=1000); BARBITURATE, URINE NEGATIVE ng/ml (NEG <=200); BENZODIAZEPINE, URINE NEGATIVE ng/mL (NEG <=200); CANNABINOID, URINE NEGATIVE ng/mL (NEG <=50); COCAINE, URINE NEGATIVE ng/mL (NEG <=300); OPIATE, URINE POSITIVE ng/mL (NEG <=2000); PHENCYCLIDINE SCREEN,URINE POSITIVE ng/mL (NEG <=25)
[2023-03-02 03:16] VITALS: BP 141/80; PULSE 129; RESP 20; TEMP 97.4; O2SAT 99
== END 2023-03-02 03:18 | disposition home or self-care (01) ==
LOC: MED 01:40
DX: G40.909 Epilepsy, unspecified, not intractable, without status epilepticus (principal); F16.129 Hallucinogen abuse with intoxication, unspecified; I10 Essential (primary) hypertension; Z79.899 Other long term (current) drug therapy; Z79.2 Long term (current) use of antibiotics
CPT/HCPCS: 80305; 81003; 99283; J1953